=== PATIENT | male | born 1955 | race Caucasian/White ===

== ENCOUNTER 2017-06-06 12:53 | Emergency (ER) | payer SELFPAY ==
[~2017-06-06] VITALS: Ht 188 cm; Wt 87.0 kg
[2017-06-06 13:03] VITALS: BP 131/75; PULSE 93; RESP 18; TEMP 97.5; O2SAT 95
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
[2017-06-06 14:14] LABS: BASOPHIL # 0.1 TH/MM3 (0-0.2); BASOPHIL % 1.5 % (0.0-2.0); EOSINOPHIL % 0.2 % (0.0-4.0); HEMATOCRIT 42.7 % (39.0-51.0); HEMO FLAGS DIFF FINAL; LYMPH % 18.7 % (9.0-44.0); LYMPHOCYTE # 1.1 TH/MM3 (1.0-4.8); MEAN CELL VOLUME 96.7 FL (80.0-100.0); MEAN CORPUSCULAR HEMOGLOBIN 32.6 PG (27.0-34.0); MEAN CORPUSCULAR HGB CONC 33.7 % (32.0-36.0); MONO % 10.7 % (0.0-8.0); NEUT % 68.9 % (16.0-70.0); PLATELET COUNT 150 TH/MM3 (150-450); RED BLOOD COUNT 4.42 MIL/MM3 (4.50-5.90); RED CELL DISTRIBUTION WIDTH 16.2 % (11.6-17.2); WHITE BLOOD COUNT 5.7 TH/MM3 (4.0-11.0)
[2017-06-06 14:31] LABS: ALT (GPT) 55 U/L (12-78); ANION GAP 13 MEQ/L (5-15); AST (GOT) 158 U/L (15-37); BICARBONATE 22.8 MEQ/L (21.0-32.0); BLOOD UREA NITROGEN 9 MG/DL (7-18); CHLORIDE 100 MEQ/L (98-107); GLOMERULAR FILTRATION RATE 73 ML/MIN (>89); POTASSIUM 3.8 MEQ/L (3.5-5.1); SODIUM (NA) 136 MEQ/L (136-145)
[2017-06-06 14:35] LABS: ALKALINE PHOSPHATASE 92 U/L (45-117); TOTAL BILIRUBIN ADULT 1.6 MG/DL (0.2-1.0)
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
[2017-06-06 15:06] LABS: ALCOHOL 405 MG/DL (0-5)
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
[2017-06-06 16:30] VITALS: BP 132/65; PULSE 75; RESP 16; O2SAT 94
[2017-06-06] MEDS ORDERED: LORazepam 2 MG TAB PO ONE (16:45)
[2017-06-06] MEDS ORDERED: AFRI0.052 EACH NARE (18:18)
[2017-06-06] MEDS ORDERED: AUGM875T3 PO (18:18)
--- NOTE | 2017-06-07 17:53 | EKG ---
Date Performed: 06/06/2017 Time Performed: 13:52:10 PTAGE: 61 years EKG: Incomplete EKG with no V5 recorded Otherwise within normal limits NORMAL ECG NO PREVIOUS TRACING DOCTOR: Marc Harman Interpretating Date/Time 06/07/2017 17:52:20
== END 2017-06-06 21:33 | disposition home or self-care (01) ==
LOC: NEDAMB 12:53 → NEPC 21:33
DX: F10.929 Alcohol use, unspecified with intoxication, unspecified (principal); S02.40EA Zygomatic fracture, right side, initial encounter for closed fracture; S02.19XA Other fracture of base of skull, initial encounter for closed fracture; S02.2XXA Fracture of nasal bones, initial encounter for closed fracture; M50.33 Other cervical disc degeneration, cervicothoracic region; M50.31 Other cervical disc degeneration, high cervical region; M50.322 Other cervical disc degeneration at C5-C6 level; M50.323 Other cervical disc degeneration at C6-C7 level; W19.XXXA Unspecified fall, initial encounter
CPT/HCPCS: 70450; 70486; 72125; 80053; 80307; 85025; 93005